=== PATIENT | female | born 1945 | race African-American/Black ===

== ENCOUNTER 2023-06-08 04:54 | Day surgery (SDC) | payer OTHER ==
[2023-06-06 14:13] VITALS: BMI 24.5
[2023-06-08] MEDS ORDERED: DEXAMETHASONE SOD PHOSPHATE 10 MG/1 ML VIAL ONE (07:22)
[2023-06-08] MEDS ORDERED: LIDOCAINE HCL 1% PRESERVATIVE FREE - 30ML VIAL IJ ONE (09:36)
[2023-06-08] MEDS ORDERED: IOHEXOL 180 MG/1 ML ML IJ ONE (09:36)
[2023-06-08] MEDS ORDERED: DEXAMETHASONE SOD PHOSPHATE 10 MG/1 ML VIAL IM ONE (09:36)
[2023-06-08] MEDS ORDERED: ACETAMINOPHEN 500 MG TABLET (FP) PO PRN (09:46)
[2023-06-08 10:04] VITALS: RESP 18; TEMP 97.5
[2023-06-08 10:36] VITALS: BP 144/57; PULSE 69
== END 2023-06-08 10:38 | disposition home or self-care (01) ==
LOC: JASU-SURG 04:54
PROVIDERS: ATTEND Pain Medicine Pain Medicine
PROC: 3E0S3BZ Introduction of Anesthetic Agent into Epidural Space, Percutaneous Approach (ICD-10-PCS; 2023-06-08)
PROC: 3E0S33Z Introduction of Anti-inflammatory into Epidural Space, Percutaneous Approach (ICD-10-PCS; principal; 2023-06-08 09:15)
DX: M48.061 Spinal stenosis, lumbar region without neurogenic claudication (principal); M54.16 Radiculopathy, lumbar region
CPT/HCPCS: 76000-TC-FY; J1100

== ENCOUNTER 2023-08-10 04:18 | Day surgery (SDC) | payer OTHER ==
[2023-08-02 12:27] VITALS: BMI 25.9
[2023-08-10] MEDS ORDERED: LIDOCAINE HCL/PF 1% SDV 5ML VIAL ONE (07:08)
[2023-08-10] MEDS ORDERED: DEXAMETHASONE SOD PHOSPHATE 10 MG/1 ML VIAL ONE (07:09)
[2023-08-10] MEDS ORDERED: LIDOCAINE HCL 1% PRESERVATIVE FREE - 30ML VIAL IJ ONE (09:20)
[2023-08-10] MEDS ORDERED: IOHEXOL 180 MG/1 ML ML IJ ONE (09:22)
[2023-08-10] MEDS ORDERED: ACETAMINOPHEN 500 MG TABLET (FP) PO PRN (09:23)
[2023-08-10] MEDS ORDERED: DEXAMETHASONE SOD PHOSPHATE 10 MG/1 ML VIAL IM ONE (09:24)
[2023-08-10 09:54] VITALS: RESP 18
[2023-08-10 10:29] VITALS: BP 125/60; PULSE 78; TEMP 97.5
== END 2023-08-10 10:40 | disposition home or self-care (01) ==
LOC: JASU-SURG 04:18
PROVIDERS: ATTEND Pain Medicine Pain Medicine
PROC: 3E0R3BZ Introduction of Anesthetic Agent into Spinal Canal, Percutaneous Approach (ICD-10-PCS; 2023-08-10)
PROC: 3E0R33Z Introduction of Anti-inflammatory into Spinal Canal, Percutaneous Approach (ICD-10-PCS; principal; 2023-08-10 08:30)
DX: M48.061 Spinal stenosis, lumbar region without neurogenic claudication (principal); M54.16 Radiculopathy, lumbar region
CPT/HCPCS: 76000-TC-FY; J1100

== ENCOUNTER 2023-10-18 15:00 | Inpatient (IN) | payer OTHER ==
[2023-10-18 17:03] LABS: BASO % 0.3 % (0-2.0); EOS % 0.4 % (0-4.5); HEMATOCRIT 36.6 % (32.4-45.2); HEMOGLOBIN 11.8 GM/dL (10.7-15.3); LYMPH % 19.9 % (8-40); MCHC 32.1 g/dl (32.0-36.0); MEAN CELL VOLUME 84.1 fl (80-96); MEAN PLT VOLUME 7.7 fl (7.5-11.1); NEUT % 70.4 % (42.8-82.8); PLATELET COUNT 321 10^3/uL (134-434); RBC 4.35 M/mm3 (3.60-5.2); RDW 15.4 % (11.6-15.6); WHITE BLOOD COUNT 5.7 K/mm3 (4.0-10.0)
[2023-10-18 17:28] LABS: POTASSIUM 4.3 mmol/L (3.5-5.1)
[2023-10-18 17:30] LABS: ALBUMIN 3.6 g/dl (3.4-5.0); MAGNESIUM 2.5 mg/dL (1.8-2.4)
[2023-10-18 17:33] LABS: CREATININE 0.9 mg/dL (0.55-1.3)
[2023-10-18 17:35] LABS: BILIRUBIN,TOTAL 0.2 mg/dL (0.2-1); TOT PROT 7.1 g/dl (6.4-8.2)
[2023-10-18] MEDS ORDERED: MECLIZINE HCL 25 MG TABLET (FP) ONE (19:32)
[2023-10-18] MEDS: MECLIZINE HCL 25 MG TABLET (FP) PO ONE (19:41)
[2023-10-18 19:59] LABS: EPI CELLS 3 /uL (0-25.1); HYALINE CASTS 0 /uL (0-3.1); PH,URINE 6.5 (5.0-8.0); URINE APPEARANCE CLEAR; URINE BACTERIA >9,000 /uL (0-1359); URINE BILIRUBIN NEGATIVE (NEGATIVE); URINE COLOR YELLOW; URINE GLUCOSE (UA) 3+ (NEGATIVE); URINE KETONE NEGATIVE (NEGATIVE); URINE LEUK ESTERASE 1+ (NEGATIVE); URINE NITRITE NEGATIVE (NEGATIVE); URINE PROTEIN NEGATIVE (NEGATIVE); URINE RBC 8 /uL (0-23.9); URINE UROBILINOGEN 0.2 mg/dL (0.2-1.0); URINE WBC 308 /uL (0-25.8)
[2023-10-18] MEDS: SODIUM CHLORIDE 1,000 ML IV STA (22:49)
[2023-10-18] MEDS: INSULIN (LEVEMIR) 100 UNITS/ML UNITS SQ SCH (23:32)
[2023-10-18] MEDS: SODIUM CHLORIDE 1,000 ML IV SCH (23:50)
[2023-10-19 07:24] LABS: BASO % 0.4 % (0-2.0); EOS % 0.6 % (0-4.5); HEMATOCRIT 35.9 % (32.4-45.2); HEMOGLOBIN 11.4 GM/dL (10.7-15.3); LYMPH % 23.5 % (8-40); MCH 26.9 pg (25.7-33.7); MCHC 31.7 g/dl (32.0-36.0); MEAN CELL VOLUME 84.8 fl (80-96); MONO % 11.8 % (3.8-10.2); NEUT % 63.7 % (42.8-82.8); PLATELET COUNT 309 10^3/uL (134-434); RBC 4.23 M/mm3 (3.60-5.2); WHITE BLOOD COUNT 4.6 K/mm3 (4.0-10.0)
[2023-10-19 07:51] LABS: POTASSIUM 4.6 mmol/L (3.5-5.1)
[2023-10-19 07:56] LABS: ALBUMIN 3.1 g/dl (3.4-5.0); CALCIUM 8.5 mg/dL (8.5-10.1)
[2023-10-19 07:57] LABS: MAGNESIUM 2.3 mg/dL (1.8-2.4)
[2023-10-19 08:01] LABS: BILIRUBIN,TOTAL 0.3 mg/dL (0.2-1); CREATININE 0.9 mg/dL (0.55-1.3); PHOSPHOROUS 3.2 mg/dL (2.5-4.9)
[2023-10-19 08:02] LABS: TOT PROT 6.4 g/dl (6.4-8.2)
[2023-10-19] MEDS: SODIUM CHLORIDE 1,000 ML IV SCH ×2 (08:43→09:20)
[2023-10-19] MEDS: INSULIN ASPART SLIDING SCALE (NOVOLOG) 1 VIAL SQ SCH (08:45)
[2023-10-19] MEDS: PRAMIPEXOLE DIHYDROCHLORIDE 0.5 MG TABLET PO SCH ×2 (08:49→21:34)
[2023-10-19] MEDS: ENOXAPARIN NA (PORCINE) 40 MG/0.4 ML DISP.SYRIN SQ SCH (09:58)
[2023-10-19] MEDS ORDERED: LISINOPRIL 5 MG TABLET PO SCH (10:00)
[2023-10-19] MEDS: LISINOPRIL 5 MG TABLET PO SCH (10:00)
[2023-10-19] MEDS: ASPIRIN 81 MG CHEWABLE TABLETS PO SCH (21:34)
[2023-10-19] MEDS: ATORVASTATIN CA 10 MG TABLET (FP) PO SCH (21:34)
[2023-10-19 22:02] VITALS: BMI 22.6
[2023-10-20 11:30] VITALS: TEMP 97.9
[2023-10-20 13:58] VITALS: BP 114/52; PULSE 76; RESP 18
[2023-10-20] MEDS ORDERED: PATIENT'S OWN MEDICATION (NON-FORMULARY) (Carbidopa/Levodopa [Rytary Er 61.25 Mg-245 Mg Ca PO SCH (15:15)
[2023-10-20] MEDS: PATIENT'S OWN MEDICATION (NON-FORMULARY) (Carbidopa/Levodopa [Rytary Er 61.25 Mg-245 Mg Ca PO SCH (15:39)
== END 2023-10-20 16:29 | disposition home health service (06) | DRG 312 ==
LOC: JER 15:00 → JERBED 21:12 → OBSVTOIN 10-19 00:17 → J4W 10-19 18:16
PROVIDERS: ADMIT Internal Medicine; ATTEND Internal Medicine
DX: I95.1 Orthostatic hypotension (principal); G20.A1 Parkinson's disease without dyskinesia, without mention of fluctuations; E78.5 Hyperlipidemia, unspecified; E11.9 Type 2 diabetes mellitus without complications; I10 Essential (primary) hypertension
CPT/HCPCS: 0241U-QW; 36415; 70450-TC; 71045-TC-FY; 80053; 81003; 82962; 83036; 83735; 84100; 84484; 85025; 87086; 87186; 93005; 93010; 93306-TC; 97116-GP; 97162-GP; 99285-25; G0378

== ENCOUNTER 2024-10-19 17:23 | Observation (INO) | payer OTHER ==
[2024-10-19 18:27] VITALS: BMI 25.9
[2024-10-19 18:43] LABS: BASO % 0.2 % (0-2.0); EOS % 0.7 % (0-4.5); HEMATOCRIT 31.5 % (32.4-45.2); HEMOGLOBIN 9.9 GM/dL (10.7-15.3); MCH 24.8 pg (25.7-33.7); MCHC 31.5 g/dl (32.0-36.0); MEAN CELL VOLUME 78.7 fl (80-96); MONO % 8.6 % (3.8-10.2); NEUT % 69.5 % (42.8-82.8); PLATELET COUNT 298 10^3/uL (134-434); RBC 4.01 M/mm3 (3.60-5.2); RDW 17.2 % (11.6-15.6); WHITE BLOOD COUNT 5.8 K/mm3 (4.0-10.0)
[2024-10-19 18:49] LABS: INR 0.99 (0.83-1.09); PROTHROMBIN TIME (PATIENT) 10.9 SEC (9.7-13.0)
[2024-10-19 18:52] LABS: ACTIVATED PTT 25.4 SECONDS (25.2-36.5)
[2024-10-19 19:01] LABS: CHLORIDE 100 mmol/L (98-107); SODIUM 133 mmol/L (136-145)
[2024-10-19 19:03] LABS: CALCIUM 9.2 mg/dL (8.5-10.1)
[2024-10-19 19:04] LABS: ALBUMIN 3.5 g/dl (3.4-5.0); ANION GAP 6 mmol/L (4-13); BLOOD UREA NITROGEN 25.7 mg/dL (7-18); CO2 26 mmol/L (21-32); GLUCOSE,RANDOM 330 mg/dL (74-106)
[2024-10-19 19:07] LABS: CREATININE 1.2 mg/dL (0.55-1.3); SGOT/AST 60 U/L (15-37); SGPT/ALT 8 U/L (13-61)
[2024-10-19 19:08] LABS: BILIRUBIN,TOTAL 0.7 mg/dL (0.2-1); TOT PROT 7.4 g/dl (6.4-8.2)
[2024-10-19 19:10] LABS: ALK PHOS 108 U/L (45-117)
[2024-10-19 20:48] LABS: CHLORIDE 100 mmol/L (98-107); POTASSIUM 4.5 mmol/L (3.5-5.1); SODIUM 136 mmol/L (136-145)
[2024-10-19 20:50] LABS: CALCIUM 9.8 mg/dL (8.5-10.1)
[2024-10-19 20:51] LABS: ALBUMIN 3.9 g/dl (3.4-5.0); ANION GAP 6 mmol/L (4-13); CO2 31 mmol/L (21-32); GLUCOSE,RANDOM 388 mg/dL (74-106)
[2024-10-19 20:54] LABS: SGOT/AST 11 U/L (15-37); SGPT/ALT < 6 U/L (13-61)
[2024-10-19 20:56] LABS: BILIRUBIN,TOTAL 0.4 mg/dL (0.2-1); TOT PROT 6.6 g/dl (6.4-8.2)
[2024-10-19 20:57] LABS: ALK PHOS 92 U/L (45-117)
[2024-10-19] MEDS: SODIUM CHLORIDE 0.9% 500 ML INFUS.BAG IV ONE (21:24)
[2024-10-20] MEDS: INSULIN ASPART SLIDING SCALE (NOVOLOG) 1 VIAL SQ SCH (00:20)
[2024-10-20] MEDS: INSULIN REGULAR HUMAN 100 UNITS/ML *VIAL IVPUSH ONE (00:21)
[2024-10-20] MEDS: PRAMIPEXOLE DIHYDROCHLORIDE 1.5 MG TABLET PO SCH (01:03)
[2024-10-20 06:13] LABS: BASO % 0.3 % (0-2.0); EOS % 1.1 % (0-4.5); HEMATOCRIT 32.2 % (32.4-45.2); HEMOGLOBIN 10.1 GM/dL (10.7-15.3); LYMPH % 27.2 % (8-40); MCH 24.8 pg (25.7-33.7); MCHC 31.3 g/dl (32.0-36.0); MEAN CELL VOLUME 79.1 fl (80-96); MEAN PLT VOLUME 7.7 fl (7.5-11.1); MONO % 11.5 % (3.8-10.2); NEUT % 59.9 % (42.8-82.8); PLATELET COUNT 285 10^3/uL (134-434); RBC 4.07 M/mm3 (3.60-5.2); RDW 17.1 % (11.6-15.6); WHITE BLOOD COUNT 4.7 K/mm3 (4.0-10.0)
[2024-10-20 06:39] LABS: POTASSIUM 4.3 mmol/L (3.5-5.1)
[2024-10-20 06:45] LABS: BLOOD UREA NITROGEN 20.3 mg/dL (7-18); CALCIUM 8.8 mg/dL (8.5-10.1)
[2024-10-20 06:46] LABS: ALBUMIN 3.4 g/dl (3.4-5.0)
[2024-10-20 06:50] LABS: BILIRUBIN,TOTAL 0.6 mg/dL (0.2-1); TOT PROT 6.6 g/dl (6.4-8.2)
[2024-10-20] MEDS ORDERED: REGADENOSON 0.4 MG/5 ML PRE-FILLED SYRINGE IVPUSH ONE ×2 (08:52→11:07)
[2024-10-20] MEDS ORDERED: RIVASTIGMINE TARTRATE 1.5 MG CAPSULE PO SCH (10:00)
[2024-10-20] MEDS: REGADENOSON 0.4 MG/5 ML PRE-FILLED SYRINGE IVPUSH ONE (11:01)
[2024-10-20] MEDS: AMINOPHYLLINE 250 MG/10 ML VIAL IVPUSH ONE (11:03)
[2024-10-20] MEDS ORDERED: AMINOPHYLLINE 250 MG/10 ML VIAL ONE (11:08)
[2024-10-20] MEDS: DULoxetine HCL 20 MG CAPSULE.DR PO SCH (11:32)
[2024-10-20] MEDS: ENOXAPARIN NA (PORCINE) 40 MG/0.4 ML DISP.SYRIN SQ SCH (11:33)
[2024-10-20 11:56] VITALS: RESP 18
[2024-10-20] MEDS: PRAMIPEXOLE DIHYDROCHLORIDE 0.5 MG TABLET PO SCH (16:48)
[2024-10-20] MEDS: RIVASTIGMINE TARTRATE 1.5 MG CAPSULE PO SCH (17:21)
[2024-10-20 17:35] VITALS: BP 125/69; PULSE 70; TEMP 98.2
[2024-10-20] MEDS ORDERED: ASPIRIN 81 MG CHEWABLE TABLETS PO SCH (22:00)
[2024-10-20] MEDS ORDERED: ATORVASTATIN CA 10 MG TABLET (FP) PO SCH (22:00)
[2024-10-20] MEDS ORDERED: INSULIN (LEVEMIR) 100 UNITS/ML UNITS SQ SCH (22:00)
== END 2024-10-20 19:23 | disposition home or self-care (01) ==
LOC: JER 17:23 → JERBED 21:21 → J4W 10-20 13:54
PROVIDERS: ADMIT Internal Medicine; ATTEND Physician Assistant
PROC: 3E033GC Introduction of Other Therapeutic Substance into Peripheral Vein, Percutaneous Approach (ICD-10-PCS; principal; 2024-10-19)
PROC: 3E013VG Introduction of Insulin into Subcutaneous Tissue, Percutaneous Approach (ICD-10-PCS; 2024-10-19)
PROC: 3E033GC Introduction of Other Therapeutic Substance into Peripheral Vein, Percutaneous Approach (ICD-10-PCS; 2024-10-19)
PROC: 3E0337Z Introduction of Electrolytic and Water Balance Substance into Peripheral Vein, Percutaneous Approach (ICD-10-PCS; 2024-10-19)
DX: R07.9 Chest pain, unspecified (principal); M79.10 Myalgia, unspecified site; E11.9 Type 2 diabetes mellitus without complications; D50.9 Iron deficiency anemia, unspecified; I10 Essential (primary) hypertension; E78.5 Hyperlipidemia, unspecified; G20.A1 Parkinson's disease without dyskinesia, without mention of fluctuations; K21.9 Gastro-esophageal reflux disease without esophagitis; G89.29 Other chronic pain; Z88.0 Allergy status to penicillin
CPT/HCPCS: 36415; 71045-TC-FY; 78452-TC; 80053; 82607; 82728; 82746; 82962; 83036; 83540; 83550; 83735; 84100; 84439; 84443; 84484; 85025; 85045; 85610; 85730; 93005; 93010; 93017; 93306-TC; 96372; 96374; 96375; 99285-25; A9502; G0378; J2785